=== PATIENT | female | born 1975 | race Caucasian/White ===

== ENCOUNTER 2018-12-02 08:03 | Emergency (ER) | payer OTHER ==
[~2018-12-02] VITALS: Ht 167.6 cm; Wt 56.2 kg
[~2018-12-02 08:03] MED LIST: NO TOMA MEDICAMENTOS
[2018-12-02] MEDS ORDERED: ZANTAC300 MG PO (08:17)
== END 2018-12-02 14:15 | disposition home or self-care (01) ==
LOC: ER 08:03
DX: K29.70 Gastritis, unspecified, without bleeding (principal)

== ENCOUNTER 2021-09-29 14:18 | Outpatient (CLI) | payer OTHER ==
[~2021-09-29 14:18] MED LIST changes: +ZANTAC300 MG PO
== END 2021-09-29 14:30 | disposition home or self-care (01) ==
LOC: TOM 14:18
DX: I10 Essential (primary) hypertension (principal); Z20.822 Contact with and (suspected) exposure to COVID-19
CPT/HCPCS: 71275

== ENCOUNTER 2024-11-20 11:53 | Inpatient (IN) | payer OTHER ==
[~2024-11-20] VITALS: Ht 167.6 cm; Wt 62.6 kg
--- NOTE | 2024-11-20 12:24 | NUR ---
PTE ALERTA Y ORIENTADA X3 LA MISMA VERBALIZA TENER DOLOR EN EL CUADRANTE INFERIOR IZQ SE CORRE PARA POSTERIOR INTERMITENTE, MANA DODGE LE RECOMENDO QUE VINIERA TOMAS DE EMERGANCIA PARA DECARTAR COLITIS, SE LE SENA S/V Y SE UBICA EN PASILLO.
[2024-11-20] MEDS ORDERED: FAMOTIDINE/PF 20 MG in 0.9 % SODIUM CHLORIDE 8 ML IV PUSH STA ×2 (12:40→17:48)
[2024-11-20] MEDS ORDERED: DICYCLOMINE HCL 10 MG/5 ML BLIST.PACK PO ONE (12:45)
--- NOTE | 2024-11-20 13:46 | NUR ---
PTE ALERTA Y ORIENTADA X3 ES EVALUADA POR EL DR. GUTIERREZ. SE CANALIZA, SE SENA MUESTRAS DE LAB Y SE ADMINISTRA MEDICAMENTO REGULO ORDEN MEDICA BAJO MEDIDAS ASEPTICAS. SE NOTIFICA CT PENDIENTE.
[2024-11-20 14:17] LABS: PH,URINE 5.5 (5.0-8.0); URINE APPEARANCE Clear; URINE BILIRRUBIN Negative (NEGATIVE); URINE BLOOD Moderate; URINE COLOR Yellow; URINE GLUCOSE Negative (NEGATIVE); URINE KETONE Trace (NEGATIVE); URINE LEUKOCYTE Negative; URINE NITRATE Negative; URINE PROTEIN Negative (NEGATIVE)
[2024-11-20 14:18] LABS: HEMATOCRIT 38.2 % (36.0-45.00); HEMOGLOBIN 13.2 g/dL (12.0-15.00); MEAN CELL VOLUME 93.4 fL (80.00-100.00); MEAN CORPUSCULAR HEMOGLOBIN 32.2 pg (27.00-32.0); MEAN CORPUSCULAR HGB CONC 34.5 g/dl (32.0-36.0); PLATELET COUNT 360 K/uL (150-450); RED BLOOD COUNT 4.09 M/uL (4.00-6.00); RED CELL DISTRIBUTION WIDTH 12.6 % (11.5-14.5)
[2024-11-20 14:31] LABS: URINE BACTERIA 2665.6 uL (0.0-1933); URINE EPITHELIAL CELLS 35.9 uL (0.0-38.8); URINE RBC 51.2 uL (0.0-20.8); URINE WBC 7.7 uL (0.0-23.2)
[2024-11-20 14:46] LABS: CALCIUM 9.5 mg/dL (8.5-10.1); CREATININE SERUM 0.69 mg/dL (0.55-1.02); GFR 89.69; POTASSIUM 4.26 mEq/L (3.5-5.1)
[2024-11-20] MEDS ORDERED: 0.9 % SODIUM CHLORIDE 1,000 ML IV SCH (18:00)
[2024-11-20] MEDS ORDERED: PIPERACILLIN/TAZOBACTAM SODIUM 3.375 GM in 0.9 % SODIUM CHLORIDE 100 ML IV SCH (18:00)
[2024-11-20] MEDS ORDERED: MORPHINE SULFATE 4 MG/ML VIAL IV ONE (18:00)
--- NOTE | 2024-11-20 18:42 | NUR ---
PACIENTE ALERTA Y ORIENTADA X3 SE ORIENTDA SOBRE TRATAMIENTO MEDICO INDICA ENTENDER Y ACEPTAR. SE ADMINISTRAN MEDICAMENTOS REGULO ORDEN MEDICA.
[2024-11-20] MEDS ORDERED: MEPERIDINE HCL 25 MG/ML AMPUL IM SCH (19:11)
[2024-11-20] MEDS ORDERED: BUTALB/ACETAMINOPHEN/CAFFEINE 1 TAB TABLET PO PRN (19:15)
[2024-11-20] MEDS ORDERED: DEXTROSE 5 % AND 0.9 % NACL 1,000 ML IV SCH (19:15)
[2024-11-20] MEDS ORDERED: ACETAMINOPHEN 500 MG GEL..CAP PO PRN (19:15)
[2024-11-20] MEDS ORDERED: ONDANSETRON HCL 4 MG in 0.9 % SODIUM CHLORIDE 50 ML IV PRN (19:15)
[2024-11-20] MEDS ORDERED: ENALAPRILAT DIHYDRATE 1.25 MG/ML VIAL IV PRN (19:15)
[2024-11-20 22:38] VITALS: BP 105/68
[2024-11-21] MEDS ORDERED: PIPERACILLIN/TAZOBACTAM SODIUM 3.375 GM in 0.9 % SODIUM CHLORIDE 100 ML IV SCH
[2024-11-21 07:50] LABS: HEMATOCRIT 34.5 % (36.0-45.00); HEMOGLOBIN 11.6 g/dL (12.0-15.00); MEAN CELL VOLUME 94.6 fL (80.00-100.00); MEAN CORPUSCULAR HEMOGLOBIN 31.9 pg (27.00-32.0); MEAN CORPUSCULAR HGB CONC 33.7 g/dl (32.0-36.0); PLATELET COUNT 296 K/uL (150-450); RED BLOOD COUNT 3.65 M/uL (4.00-6.00); RED CELL DISTRIBUTION WIDTH 12.4 % (11.5-14.5)
[2024-11-21 08:00] LABS: ERYTHROCYTE SEDIMENTATION RATE 23 mm/hr
[2024-11-21 08:19] LABS: INR 1.03; PARTIAL THROMBOPLASTIN TIME 32.4 SECONDS (22.0-34.0); PROTHROMBIN TIME 11.2 SECONDS (9.0-11.5)
[2024-11-21 08:27] LABS: ALBUMIN 3.1 gm/dL (3.4-5.0); BILIRUBIN TOTAL 0.71 mg/dL (0.3-1.2); BILIRUBIN,CONJUGATED 0.19 mg/dL (0.0-0.2); BILIRUBIN,UNCONJUGATED 0.52 mg/dL (0.0-0.6); CALCIUM 8.5 mg/dL (8.5-10.1); CHOL HDL RATIO 2.6 (0-5.0); CREATININE SERUM 0.75 mg/dL (0.55-1.02); GFR 81.47; GLOBULINA 3.1 G/DL (2.4-3.5); POTASSIUM 3.95 mEq/L (3.5-5.1); TOTAL PROTEIN 6.2 gm/dL (6.4-8.2)
[2024-11-21 08:35] LABS: C-REACTIVE PROTEIN 16.2 MG/DL (0.00-0.29)
[2024-11-21] MEDS ORDERED: LACTOBACILLUS ACIDOPHILUS 1 CAP CAP PO SCH (09:00)
[2024-11-21] MEDS ORDERED: PANTOPRAZOLE SODIUM 40 MG in 0.9 % SODIUM CHLORIDE 8 ML IV PUSH SCH (09:00)
[2024-11-21] MEDS ORDERED: ENOXAPARIN SODIUM 40 MG/0.4 ML SYRINGE SUBCUTANEO SCH (09:00)
[2024-11-21 09:13] VITALS: BP 99/63; O2SAT 98
[2024-11-21] MEDS ORDERED: DEXTROSE 5 %-0.45 % SOD CHLORD 1,000 ML IV SCH (13:30)
[2024-11-21] MEDS ORDERED: MORPHINE SULFATE 4 MG/ML CARTRIDGE IV PRN (13:30)
[2024-11-21] MEDS ORDERED: HYOSCYAMINE SULFATE 0.125 MG TAB.SUBL SL PRN (13:30)
[2024-11-21] MEDS ORDERED: PIPERACILLIN/TAZOBACTAM SODIUM 4.5 GM in 0.9 % SODIUM CHLORIDE 100 ML IV SCH (17:00)
[2024-11-21 18:01] VITALS: BP 111/73; O2SAT 98
[2024-11-21] MEDS ORDERED: PANTOPRAZOLE SODIUM 40 MG/VIAL VIAL IV PUSH SCH (21:00)
[2024-11-21 23:38] VITALS: BP 102/62; O2SAT 99
[2024-11-22 07:30] LABS: HEMATOCRIT 34.3 % (36.0-45.00); HEMOGLOBIN 11.8 g/dL (12.0-15.00); MEAN CELL VOLUME 93.9 fL (80.00-100.00); MEAN CORPUSCULAR HEMOGLOBIN 32.2 pg (27.00-32.0); MEAN CORPUSCULAR HGB CONC 34.3 g/dl (32.0-36.0); PLATELET COUNT 322 K/uL (150-450); RED BLOOD COUNT 3.65 M/uL (4.00-6.00); RED CELL DISTRIBUTION WIDTH 12.6 % (11.5-14.5)
[2024-11-22 07:48] VITALS: BP 99/64; O2SAT 97
[2024-11-22] MEDS ORDERED: RIVAROXABAN 10 MG TAB PO SCH (09:00)
[2024-11-22 16:20] VITALS: BP 107/68; O2SAT 100
[2024-11-23 00:28] VITALS: BP 100/64; O2SAT 100
[2024-11-23 08:00] VITALS: BP 113/77; O2SAT 98
[2024-11-23 16:27] VITALS: BP 104/70; O2SAT 97
[2024-11-23 23:52] VITALS: BP 99/64; O2SAT 95
[2024-11-24 08:05] VITALS: BP 109/75; O2SAT 95
[2024-11-24 16:27] VITALS: BP 114/75; O2SAT 96
[2024-11-24] MEDS ORDERED: MELATONIN 5 MG TABLET PO SCH (21:00)
[2024-11-25 00:56] VITALS: BP 96/64; O2SAT 95
[2024-11-25 07:02] LABS: HEMATOCRIT 32.7 % (36.0-45.00); HEMOGLOBIN 11.2 g/dL (12.0-15.00); MEAN CELL VOLUME 93.1 fL (80.00-100.00); MEAN CORPUSCULAR HEMOGLOBIN 31.9 pg (27.00-32.0); MEAN CORPUSCULAR HGB CONC 34.3 g/dl (32.0-36.0); PLATELET COUNT 324 K/uL (150-450); RED BLOOD COUNT 3.51 M/uL (4.00-6.00); RED CELL DISTRIBUTION WIDTH 12.1 % (11.5-14.5)
[2024-11-25 07:42] LABS: ALBUMIN 2.9 gm/dL (3.4-5.0); BILIRUBIN TOTAL 0.3 mg/dL (0.3-1.2); CALCIUM 8.8 mg/dL (8.5-10.1); CREATININE SERUM 0.67 mg/dL (0.55-1.02); GFR 92.79; GLOBULINA 3.2 G/DL (2.4-3.5); POTASSIUM 3.51 mEq/L (3.5-5.1); TOTAL PROTEIN 6.1 gm/dL (6.4-8.2)
[2024-11-25 07:45] LABS: C-REACTIVE PROTEIN 2.42 MG/DL (0.00-0.29)
[2024-11-25 08:51] VITALS: BP 116/78; O2SAT 96
[2024-11-25 16:00] VITALS: BP 118/74; O2SAT 99
[2024-11-25] MEDS ORDERED: INTESTINEX680 M1 PO (16:29)
[2024-11-25] MEDS ORDERED: PROTONIX40 MG PO (16:30)
[2024-11-25] MEDS ORDERED: LEVSIN/SL0.125 MG SL (16:34)
== END 2024-11-25 17:56 | disposition home or self-care (01) | DRG 392 ==
LOC: ER 11:56 → MEDJ 20:09 → SURG 20:09
PROVIDERS: Emergency Medicine; General Practice; ADMIT Internal Medicine; ATTEND Internal Medicine
PROC: BW21YZZ Computerized Tomography (CT Scan) of Abdomen and Pelvis using Other Contrast (ICD-10-PCS; principal; 2024-11-20)
PROC: BW21YZZ Computerized Tomography (CT Scan) of Abdomen and Pelvis using Other Contrast (ICD-10-PCS; 2024-11-25)
DX: K57.32 Diverticulitis of large intestine without perforation or abscess without bleeding (principal); K90.49 Malabsorption due to intolerance, not elsewhere classified; K29.50 Unspecified chronic gastritis without bleeding; D72.829 Elevated white blood cell count, unspecified